=== PATIENT | female | born 1985 | race Caucasian/White ===

== ENCOUNTER 2018-07-24 20:52 | Inpatient (IN) | payer OTHER ==
--- NOTE | 2018-07-24 21:00 | NUR ---
HERE WITH SPOUSE. TEARFUL BECAUSE CONTRACTIONS HAVE STOPPED. HAD FOR OVER AND HOUR Q 5 MIN PT STATES. REASSSURNCE GIVEN. EFM SVE. 4-5//-2. WAS 4 IN OFFICE. Q 7 MIN CTX PALPABLE,VERY ANXIOUS AND GUARDED WITH SVE,
[2018-07-24 21:21] VITALS: BP 103/60; PULSE 81; TEMP 98.1
[2018-07-24] MEDS ORDERED: PRENATAL FORMU1 EAC3 PO (21:27)
--- NOTE | 2018-07-24 21:55 | NUR ---
PT UNSURE IF THIS IS REAL LABOR. SAYS THEY BARELY GOT TO HOSPITAL ONCE AND ANTOHER TIME WAS TOO EARLY AND WAITED FOR HOURS TO GO INTO REAL LABOR. 2[address] CAMACHO NOTIFIED. ORDERS FOR IVF
[2018-07-24 23:40] VITALS: BP 119/69; PULSE 94
--- NOTE | 2018-07-24 23:50 | NUR ---
SEATED FOR EPIDURAL BY BROOKS. SPOUSE SUPPORTIVE. TEST 235[address]. [address] CAMACHO HERE. PLAN OF CARE DISCUSSED WITH PT ANDSPOUSE
[2018-07-25] VITALS (13 sets, daily range): BP systolic 79–144; BP diastolic 42–64; PULSE 62–105; TEMP 97.7–97.9
[2018-07-25 00:02] LABS: BASO % 0.3 % (0.0-2.0); EOS # 0.1 (0.0-0.7); EOS % 1.8 % (0-4.0); GRAN # 3.6 (1.4-6.5); GRAN % 57.3 % (42.2-75.2); HEMOGLOBIN 10.8 g/dl (12.5-16.0); LYMPH # 1.9 (1.2-3.4); LYMPH % 30.9 % (20.0-51.0); MEAN CELL VOLUME 90 fl (80.0-100.0); MEAN CORPUSCULAR HEMOGLOBIN 30 pg (27.0-31.0); MEAN CORPUSCULAR HGB CONC 34 g/dl (33.0-37.0); MONO # 0.6 (0.1-0.6); MONO % 9.4 % (1.7-9.3); PLATELET COUNT 159 K/mm3 (130-400); RED BLOOD COUNT 3.58 M/mm3 (4.10-5.30); REDCELL DISTRIBUTION WIDTH-CV 12.6 % (11.5-14.5)
[2018-07-25 00:08] LABS: HEMATOCRIT 32.2 % (37.0-47.0)
--- NOTE | 2018-07-25 00:20 | NUR ---
RESTS LIGHTS DOWN
--- NOTE | 2018-07-25 01:03 | NUR ---
SITS UPRIGHT/ NAUSEA, EPHEDRINE GIVNN DUE TO HYPOTENSION. SPOUSE AT BEDSIDE. QUIET
--- NOTE | 2018-07-25 01:26 | NUR ---
straight cath 200cc
--- NOTE | 2018-07-25 04:36 | NUR ---
UNABLE TO STAND WITHOUT ASSIST, DIZZY . TO 219/WC. INSTRUCTED TO CALL FOR ASSIST TO BR. BABY IN [place] FOR BATH. PARENTS TO TRY AND SLEEP. SNACKED ON SANDWICH. BENADRYL FOR ITCHING HELPFUL. ANXIOUS ABOUT MOST THINGS
--- NOTE | 2018-07-25 11:04 | NUR ---
Initial visit attempt; Nurse with family, Graphic Illustrator left card of congratulations for the of their daughter and information regarding the availability of spiritual carea at [address].
[2018-07-26] VITALS: BP 100/52; PULSE 58
[2018-07-26 09:25] VITALS: BP 95/55; PULSE 70; TEMP 98.3
[2018-07-26 16:45] VITALS: BP 108/66; PULSE 66; TEMP 97.5
--- NOTE | 2018-07-26 20:17 | NUR ---
REPORT RECEIVED FROM OFF GOING RN, CARE TAKEN OVER BY THIS RN.
[2018-07-26 21:08] VITALS: BP 116/79; PULSE 72; TEMP 97.8
[2018-07-27] MEDS ORDERED: IBU800 M1 PO (10:00)
[2018-07-27 10:15] VITALS: BP 111/71; PULSE 71; TEMP 97.6
== END 2018-07-27 16:15 | disposition home or self-care (01) | DRG 807 ==
LOC: LDRO 20:52 → LDR 21:50 → LDRO 07-25 00:02 → LDR 07-25 00:06 → OB 07-25 00:06
PROVIDERS: ADMIT Student in an Organized Health Care Education/Training Program
PROC: 10E0XZZ Delivery of Products of Conception, External Approach (ICD-10-PCS; principal; 2018-07-25)
PROC: 0HQ9XZZ Repair Perineum Skin, External Approach (ICD-10-PCS; 2018-07-25)
DX: O70.0 First degree perineal laceration during delivery (principal); Z37.0 Single live birth; Z3A.37 37 weeks gestation of pregnancy; O69.2XX0 Labor and delivery complicated by other cord entanglement, with compression, not applicable or unspecified; O99.824 Streptococcus B carrier state complicating childbirth; O76 Abnormality in fetal heart rate and rhythm complicating labor and delivery
CPT/HCPCS: OP; J2540; J2590; J7120